=== PATIENT | female | born 1950 | race Caucasian/White ===

== ENCOUNTER 2021-10-11 19:49 | Emergency (ER) | payer OTHER, SELFPAY ==
[2021-10-11] VITALS (9 sets, daily range): BP systolic 142–157; BP diastolic 79–85; PULSE 65–69; RESP 13–21; TEMP 36.5; O2SAT 92–98
--- NOTE | ~2021-10-11 | XR_ITS ---
XR elbow LT 2V DATE: 10/11/2021 20:25 INDICATION: Fall today. Diffuse pain. TECHNIQUE: 2 views COMPARISON: None FINDINGS: There is complete posterior dislocation of the radius and ulna. There is evidence of radial head fracture. Repeat examination after reduction of the dislocation is r ecommended for more definitive characterization of this and any additional fracture. IMPRESSION: Posterior dislocation at the elbow and radial head fracture Follow-up postoperative reduction radiographs are recommended for more definitive evaluation Reviewed, dictated and finalized at location [facility]. IMPRESSION: Posterior dislocation at the elbow and radial head fracture Follow-up postoperative reduction radiographs are recommended for more definiti ve evaluation
--- NOTE | ~2021-10-11 | CT_ITS ---
EXAMINATION: CT facial bones wo con DATE: 10/11/2021 20:17 INDICATION: Fall. Facial injury. TECHNIQUE: Computed tomography (CT) of the facial bones and maxillofacial region was performed withou t intravenous contrast. Automated exposure control and iterative reconstruction technique were employ ed. Exam dose: 486.97 mGy-cm total exam DLP. COMPARISON: None. FINDINGS: There is mild to moderate mucoperiosteal thickening of the maxillary sinuses. The nasal bones and anterior maxillary spine, frontozygomatic sutures, orbital rims and gilmore, zygoma tic arches and remainder of the facial bones are intact, without fracture. Normal alignment at the te mporomandibular joints. No mandibular fracture. Bilateral nasal antral windows. Interlamellar cell of the left middle nasal turbinate. There is slight anterolisthesis and mild degenerative disease at C3-4. There is prominent degenerativ e disc disease at C5-6. No fracture of the upper cervical spine is evident. There is limited inclusio n of the cervical spine in this examination. IMPRESSION: No facial fracture Reviewed, dictated and finalized at [facility]. Reviewed, dictated and finalized at location [facility]. IMPRESSION: No facial fracture
--- NOTE | ~2021-10-11 | CT_ITS ---
EXAMINATION: CT brain wo con DATE: 10/11/2021 20:17 INDICATION: Ground-level fall. Subsequent epistaxis. TECHNIQUE: Computed tomography (CT) of the head was performed without intravenous contrast. The mA wa s adjusted according to patient size. Iterative reconstruction technique was employed. Exam dose: 60 5.33 mGy-cm total exam DLP. COMPARISON: None FINDINGS: No intracranial mass lesion or hemorrhage or cerebrovascular accident. No midline shift or mass effect. No subdural or epidural hematoma. There is bilateral carotid siphon internal carotid artery calcification. There is nonspecific diminis hed attenuation of the cerebral white matter, likely chronic small vessel ischemic change. Normal ventricular size. No subdural or epidural hematoma. No fracture or bone destruction of the cranial vault. There is mild to moderate mucoperiosteal thick ening of the maxillary sinuses IMPRESSION: Cerebral atherosclerosis and chronic small vessel ischemic changes of the cerebral white matter No acute intracranial abnormality Reviewed, dictated and finalized at [facility]. Reviewed, dictated and finalized at location [facility].
--- NOTE | 2021-10-11 19:56 | ED.FALL ---
HPI - Fall General Chief Complaint: Fall Stated Complaint: glf Time Seen by Provider: 10/11/21 19:51 Source: patient, EMS and RN notes reviewed Mode of arrival: EMS Limitations: no limitations History of Present Illness HPI Narrative: Patient is 70 years old white female, was walking in her house with the shoes on, somehow could not stop her fast speed, and felt landed on the left elbow, and the smacked her face on the ground. Patient denies loss of consciousness. Complaining of left elbow pain and facial pain. Patient denies other symptoms. Patient denies any blood thinner. Also denies any fever, chills, nausea, vomiting, chest pain, shortness of breath or abdominal pain or back pain. Related Data Allergies Allergy/AdvReac Type Severity Reaction Status Date / Time codeine Allergy Hyperactive Verified 10/11/21 19:59 enalapril Allergy Rash Verified 10/11/21 19:59 Review of Systems Review of Systems: CONSTITUTIONAL: Denies fever, chills, or sweats. EYES: Denies visual changes, redness, or discharge. ENT: Denies rhinorrhea, congestion, sore throat, or otalgia. CARDIOVASCULAR: Denies chest pain, palpitations, or edema. RESPIRATORY: Denies cough or dyspnea. GASTROINTESTINAL: Denies abdominal pain, nausea, vomiting, or diarrhea. GENITOURINARY: Denies dysuria or hematuria. SKIN: Denies rash or itching. MUSCULOSKELETAL: Denies back pain, joint pain, or myalgia. NEUROLOGIC: Denies headache, numbness, or weakness. PSYCHIATRIC: Denies anxiety or depression. Exam Narrative: General appearance: Well-developed, well-nourished Skin: Normal color Head: Normocephalic, nontraumatic Eyes: Clear conjunctiva ENT: Oropharynx normal, ears normal, nose normal Neck: Supple, nontender Chest and respiratory: Airway patent, no respiratory distress, no accessory muscle use Heart: Regular rate/rhythm Abdomen: Soft, nontender, no organomegaly, quiet bowel sounds Vascular: Normal peripheral pulses, normal capillary refill. Musculoskeletal: Left elbow showed deformity, severe limited range of motion, diffusely tender, neurovascularly intact Neurologic: Alert and oriented ?3, [employer] is normal as tested, no gross motor deficit Course Course Emergency Course: Stable Consultations Consultation #1: Dr. Lafleur Transfer to [facility], unstable fracture Date: 10/11/21 Time: 21:18 Consultation #2: DR RUBIO ED [facility] who accepted patient transfer Date: 10/11/21 Time: 21:21 Vital Signs Vital signs: Vital Signs Temperature 36.5 C 10/11/21 19:49 Pulse Rate 69 10/11/21 19:49 Respiratory Rate 17 10/11/21 19:49 Blood Pressure 157/79 H 10/11/21 19:49 Pulse Oximetry 96 10/11/21 19:49 Temperature 36.5 C 10/11/21 19:49 Pulse Rate 69 10/11/21 19:49 Respiratory Rate 17 10/11/21 19:49 Blood Pressure 157/79 H 10/11/21 19:49 Pulse Oximetry 96 10/11/21 19:49 MDM - Fall Imaging Data Radiologist's impression: Impressions Head CT 10/11/21 20:22 IMPRESSION: Cerebral atherosclerosis and chronic small vessel ischemic changes of the cerebral white matter No acute intracranial abnormality Elbow X-Ray 10/11/21 20:34 IMPRESSION: Posterior dislocation at the elbow and radial head fracture Follow-up postoperative reduction radiographs are recommended for more definitive evaluation Face CT 10/11/21 20:43 IMPRESSION: No facial fracture ECG Data EKG #1: Attestation: I personally reviewed and interpreted this ECG as follows: ECG completion date: 10/11/21 ECG completion time: 20:22 Interpretation: Normal sinus rhythm at 71 bpm, axis deviation, left bundle branch bloc
--- NOTE | 2021-10-11 19:57 | ECG_ITS ---
Measurements Intervals [place] Rate: 71 P: 43 IA: 187 QRS: -56 QRSD: 165 T: 98 QT: 441 QTc: 481 Interpretive Statements SINUS RHYTHM MARKED LEFT AXIS DEVIATION [QRS AXIS < -30] LEFT BUNDLE BRANCH BLOCK [120+ ms QRS DURATION, 80+ ms Q/S IN V1/V2, 85+ ms R IN I/aVL/V5/V6] ABNORMAL ECG NO PREVIOUS ECG AVAILABLE FOR COMPARISON Electronically Signed On 10-12-2021 11:44:14 CDT by Kedar Brenner M.D.
--- NOTE | 2021-10-11 20:05 | PC.NURSE ---
Patient taken to CT via stretcher.
[2021-10-11] MEDS: MORPHINE SULFATE (*CRX) 4 MG/ML INJ IV PUSH ×2 (20:32→21:35)
== END 2021-10-11 21:42 | disposition short-term general hospital (02) ==
PROVIDERS: Emergency Provider Emergency Medicine; PCP Internal Medicine
DX: S52.122A Displaced fracture of head of left radius, initial encounter for closed fracture (principal); I44.7 Left bundle-branch block, unspecified; I67.2 Cerebral atherosclerosis; W01.0XXA Fall on same level from slipping, tripping and stumbling without subsequent striking against object, initial encounter
CPT/HCPCS: 70450; 70486; 73070; 93005; 96374; 96376; 99285; J2270